=== PATIENT | male | born 1980 | race Caucasian/White ===

== ENCOUNTER 2016-10-20 07:58 | Emergency (ER) | payer OTHER ==
--- NOTE | ~2016-10-20 | ER ---
PATIENT'S NAME: KRISTIN [facility] AGE: 36 Y [address] ROOM: [place] [address] LOCATION: [facility] ADMIT DATE: 10/20/2016 ER/Outpatient Report DISCHARGE DATE: 10/20/2016 FAMILY PHYSICIAN: Milagro Salmeron MD ATTENDING PHYSICIAN: Kendell Murray Time of Arrival: 0738 hours. Time of Evaluation: 0805 hours. CHIEF COMPLAINT: Visual changes and numbness and tingling in his hands bilaterally. HISTORY OF PRESENT ILLNESS: This started about 10 days prior to arrival. It has progressively gotten worse. He did see his primary care doctor on Saturday. Labs were obtained and were unremarkable except for a mild decrease in his white blood cell count, mild decrease in his vitamin D. He does have an appointment with an eye doctor on Saturday. Denies any fevers or chills. No nausea or vomiting. No diarrhea or constipation. No chest pain. No shortness of breath. The patient has been under significant stress lately. He has had lack of sleep. PAST MEDICAL HISTORY: None. PAST SURGICAL HISTORY: Bilateral knees. SOCIAL HISTORY: The patient denies any tobacco use. Reports occasional alcohol use. Denies any illicit drug use. ALLERGIES: NO KNOWN DRUG ALLERGIES. MEDICATIONS: 1. Trazodone. 2. Prednisone. PRIMARY CARE DOCTOR: Milagro Salmeron MD. REVIEW OF SYSTEMS: All systems are reviewed by myself and negative with the exception of those discussed in HPI and past medical history. PATIENT'S NAME: KRISTIN [facility] AGE: 36 Y [address] ROOM: [place] [address] LOCATION: [facility] ADMIT DATE: 10/20/2016 ER/Outpatient Report DISCHARGE DATE: 10/20/2016 FAMILY PHYSICIAN: Milagro Salmeron MD ATTENDING PHYSICIAN: Kendell Murray PHYSICAL EXAMINATION: VITAL SIGNS: Weight 119 kg, blood pressure 158/94, pulse 95, respiratory rate 20, temperature 98.7, oxygen saturation 96% on room air. GENERAL: The patient is a 36-year-old male, appears stated age, in no acute distress at this time. HEENT: Head: Normocephalic, atraumatic. Pupils are equal, round, and reactive to light and accommodation. Extraocular motions are intact. The patient does have horizontal nystagmus noted. Oropharynx is clear. NECK: Supple. There is no nuchal rigidity. CARDIOVASCULAR: Regular rate and rhythm. No murmurs, rubs, or gallops. LUNGS: Clear to auscultation bilaterally. No wheezes, rales, or rhonchi. ABDOMEN: Soft, nontender, and nondistended. No rebound, rigidity, or guarding. MUSCULOSKELETAL: The patient does move all 4 extremities. 5/5 muscle strength. NEUROLOGICAL: GCS 15. He is alert and oriented x4. Normal facial sensation. Normal tongue movement. Normal smile. Normal motor of the face. Normal shoulder shrug. Normal [id number]; however, the patient feels like his left is harder than his right. Normal rapid hand movement. Downward going toes. No clonus. 2/4 reflexes. SKIN: Warm and dry. LABORATORY DATA AND X-RAYS: Labs and x-rays are obtained. CBC is normal. CMP is unremarkable except for CO2 of 33. LFTs are normal. MRI of the brain is obtained. We discussed the results with the radiologist. There is a retention cyst, otherwise, no acute process. MRI of the C-spine shows moderate to advanced degenerative disc disease of C5-6 and C6-7. The cord does appear okay. There is a right moderate disc herniation at C6-C7 which is on the lateral aspect of the right side. IMPRESSION: 1. Lateral right moderate disc herniation, C6-C7. 2. Moderate to advanced degenerative disc, C5-C6 and C6-C7. 3. Numbness and tingling to bilateral upper extremities, likely due to lateral right moderate disc herniation. 4. Visual changes. 5. Initial visit. EMERGENCY DEPARTMENT COURSE: The patient was brought back to the examination room. Seen and evaluated by myself. IV was established. Laboratory analysis and imaging were obtained as described above. With the patient's symptoms, there is certainly a concern for possible cerebellar type lesion, thus MRI is warranted emergently. Thankfully, there is no evidence of neurological lesion. I have discussed the PATIENT'S NAME: [facility]IN [facility] AGE: 36 Y [address] ROOM: [place] [address] LOCATION: [facility] ADMIT DATE: 10/20/2016 ER/Outpatient Report DISCHARGE DATE: 10/20/2016 FAMILY PHYSICIAN: Milagro Salmeron MD ATTENDING PHYSICIAN: Kendell Murray results with the patient. I have recommended rest and follow up with Neurology if no improvement. Continue the ophthalmology visit on Saturday. I have discussed return to care instructions including worsening symptoms or any other concerns, to return to the emergency department as soon as possible. The patient is agreeable without further questions at this time. DISPOSITION: The patient is discharged to home in good condition. DO GURINDER AGUERO/tawannal /[id number] d: 10/20/16 2325 t: 10/22/16 1600, OUTPATIENT REPORT
[2016-10-20 08:37] LABS: BASOPHIL % 0.9 %; EOSINOPHIL % 0.7 %; HEMATOCRIT 44.9 % (37.0-53.0); HEMOGLOBIN 16.1 g/dL (12.0-17.0); IMMATURE GRANULOCYTE % 0.2 %; LYMPHOCYTE # 1.2 K/uL (0.8-4.0); LYMPHOCYTE % 26.1 %; MCH 31.9 pg (27.0-34.0); MCHC 35.9 gm/dL (32.0-36.5); MCV 89.1 fl (83.0-98.0); MONOCYTE # 0.5 K/uL (0.0-1.0); MONOCYTE % 11.1 %; MPV 10.1 fl (9.4-12.4); NEUTROPHIL # (ANC) 2.7 K/uL (1.4-9.0); NRBC % 0 /100WBC (0-0.00); PLATELET COUNT 201 K/uL (150-450); RBC 5.04 M/uL (4.00-6.00); RDW-CV 11.6 % (11.9-14.6); WBC 4.5 K/uL (4.0-11.0)
[2016-10-20 08:53] LABS: ALK PHOS 53 IU/L (33-138); ALT 23 IU/L (12-78); ANION GAP 9.7 (10.0-19.0); AST 10 IU/L (10-40); BLOOD UREA NITROGEN 14 mg/dL (6-24); CALCIUM 8.7 mg/dL (8.5-10.5); CHLORIDE 104 mMol/L (96-110); CO2 33 mMol/L (22-32); CREATININE 1.3 mg/dL (0.6-1.3); ESTIMATED GFR (MDRD EQUATION) > 60; POTASSIUM 3.7 mMol/L (3.7-5.1); SODIUM 143 mMol/L (135-145); TOTAL BILIRUBIN 0.9 mg/dL (0.0-1.5); TOTAL PROTEIN 6.8 g/dL (6.0-8.4)
== END 2016-10-20 10:40 | disposition disaster alternative care site (69) ==
LOC: GMED 07:58
PROVIDERS: Emergency Medicine
DX: M50.223 Other cervical disc displacement at C6-C7 level (principal); M50.322 Other cervical disc degeneration at C5-C6 level; M50.323 Other cervical disc degeneration at C6-C7 level; Z79.899 Other long term (current) drug therapy; Z98.890 Other specified postprocedural states; H53.8 Other visual disturbances
CPT/HCPCS: A9577